=== PATIENT | male | born 1975 | race Caucasian/White ===

== ENCOUNTER → 2017-07-31 14:28 | Outpatient (CLI) | payer OTHER, SELFPAY ==
--- NOTE | 2017-07-31 14:40 | CT_ITS ---
CT abdomen pelvis wo con CLINICAL INDICATION: Right-sided flank pain with microscopic hematuria ITS.REASON: HEMATURIA ORDERING PHYSICIAN: Wan Swanson MD PATIENT AGE: 42 years COMPARISON: None TECHNIQUE: Axial images obtained with sagittal and coronal reformats. PROCEDURE: Oral Contrast: None IV Contrast: None . FINDINGS: Lung bases are clear. Diffuse fatty liver. There is hepatomegaly with a transverse component of the liver measuring 30 cm. No calcified gallstones. The spleen, adrenal glands, and pancreas are unremarkable. No hydronephrosis. No obstructing renal or ureteral calculi apparent. No obvious renal mass. Prior appendectomy. No intestinal obstruction or free air. No evidence of diverticulitis. Urinary bladder has an unremarkable unenhanced appearance. No pelvic mass or abnormal fluid collection or focal inflammatory change. Artifact is present from an epidural stimulator device along the right gluteal region. Degenerative changes are present in the lumbar spine with degenerative disc disease at L4-L5 and L5-S1. IMPRESSION: 1. No renal or ureteral calculi. 2. Fatty liver with hepatomegaly
== END ==
PROVIDERS: Family Provider Internal Medicine Adolescent Medicine; PCP Internal Medicine Adolescent Medicine; Visit Provider Internal Medicine Adolescent Medicine
DX: R31.9 Hematuria, unspecified (principal)
CPT/HCPCS: 74176

== ENCOUNTER → 2018-04-24 09:22 | Outpatient (CLI) | payer OTHER, SELFPAY ==
[2018-04-24 09:33] LABS: Basophils # 0.1 K/mm3 (0-0.2); Basophils % 0.6 % (0.1-2.0); Eosinophils # 0.3 K/mm3 (0.0-0.4); Eosinophils % 4.2 % (0.1-12.0); Hematocrit 44.6 % (42.0-52.0); Hemoglobin 14.6 g/dL (14.1-18.0); Lymphocytes % 25.5 K/mm3 (10-50); Mean Corpuscular HGB Conc 32.6 g/dL (31.8-35.4); Mean Corpuscular Hemoglobin 29.8 pg (27.0-31.2); Mean Corpuscular Volume 91.4 fl (80-94); Mean Platelet Volume 8.3 fl (7.4-10.4); Monocytes # 0.5 K/mm3 (0.1-1.0); Monocytes % 6.5 % (1.7-9.3); Neutrophils # 4.9 K/mm3 (1.8-7.8); Neutrophils % 63.2 % (37.0-80.0); Platelet Count 221 K/mm3 (142-424); Red Blood Count 4.88 M/mm3 (4.60-6.20); Red Cell Distribution Width 13.7 % (11.5-17.5); White Blood Count 7.7 K/mm3 (4.8-10.8)
[2018-04-24 10:58] LABS: Alanine Aminotransferase 42 U/L (12-78); Albumin Level 3.7 gm/dL (3.4-5.0); Albumin/Globulin Ratio 1.1 (1.1-1.8); Alkaline Phosphatase 89 U/L (46-116); Anion Gap 10.8 mEq/L (5-15); Aspartate Amino Transferase 24 U/L (15-37); Bilirubin,Total 0.4 mg/dL (0.2-1.0); Blood Urea Nitrogen 15 mg/dL (7-18); Calcium 9.1 mg/dL (8.5-10.1); Carbon Dioxide 32 mmol/L (21.0-32.0); Chloride 106 mmol/L (98-107); Chol/HDL Ratio 3.9 (1-3.5); Cholesterol 172 mg/dL (140-200); Creatinine,Serum 1.26 mg/dL (0.70-1.30); Estimated Glomerular Filt Rate 62 ml/min (>60); Free Thyroxine Index 2.7 ug/dL (5.93-13.13); GFR (African American) 76 ML/MIN (>60); Globulin 3.4 gm/dl (1.3-3.2); Glucose 89 mg/dL (74-106); HDL Cholesterol 44 mg/dL (27-67); LDL Cholesterol 108 mg/dL (0-130); Potassium 4.8 mmoL/L (3.5-5.1); Sodium 144 mmol/L (136-145); T4 (Thyroxine) 8.4 ug/dl (4.7-13.3); Thyroid Stimulating Hormone 2.57 uIU/ml (0.358-3.740); Total Protein,Serum 7.1 gm/dL (6.4-8.2); Triglycerides 100 mg/dL (30-200); Triiodothryronine (T3) Uptake 32 % (31-39); VLDL Cholesterol 20 mg/dL (0-40)
[2018-04-29 07:29] LABS: Testosterone,Free 1.6 pg/mL (6.8-21.5)
== END ==
PROVIDERS: Visit Provider Internal Medicine Adolescent Medicine
DX: E78.2 Mixed hyperlipidemia (principal); E29.1 Testicular hypofunction
CPT/HCPCS: 36415; 80053; 80061; 84402; 84403; 84436; 84443; 84479; 85025

== ENCOUNTER → 2018-08-29 08:30 | Outpatient (CLI) | payer OTHER, SELFPAY ==
[2018-08-29 09:09] LABS: Basophils # 0.1 K/mm3 (0-0.2); Basophils % 0.7 % (0.1-2.0); Eosinophils # 0.3 K/mm3 (0.0-0.4); Eosinophils % 4.8 % (0.1-12.0); Hemoglobin 17.6 g/dL (14.1-18.0); Lymphocytes # 1.5 K/mm3 (0.7-4.5); Lymphocytes % 21.7 % (10-50); Mean Corpuscular HGB Conc 33.2 g/dL (31.8-35.4); Mean Corpuscular Hemoglobin 29.8 pg (27.0-31.2); Mean Corpuscular Volume 89.8 fl (80-94); Mean Platelet Volume 7.9 fl (7.4-10.4); Monocytes # 0.6 K/mm3 (0.1-1.0); Monocytes % 8.4 % (1.7-9.3); Neutrophils # 4.5 K/mm3 (1.8-7.8); Neutrophils % 64.3 % (37.0-80.0); Platelet Count 226 K/mm3 (142-424); Red Cell Distribution Width 13.7 % (11.5-17.5); White Blood Count 7.1 K/mm3 (4.8-10.8)
[2018-08-29 10:30] LABS: Alanine Aminotransferase 44 U/L (12-78); Albumin Level 3.8 gm/dL (3.4-5.0); Alkaline Phosphatase 86 U/L (46-116); Anion Gap 14.4 mEq/L (5-15); Aspartate Amino Transferase 24 U/L (15-37); Bilirubin,Total 0.6 mg/dL (0.2-1.0); Blood Urea Nitrogen 13 mg/dL (7-18); Calcium 9.1 mg/dL (8.5-10.1); Carbon Dioxide 27 mmol/L (21.0-32.0); Chloride 102 mmol/L (98-107); Chol/HDL Ratio 5.3 (1-3.5); Cholesterol 187 mg/dL (140-200); Creatinine,Serum 1.24 mg/dL (0.70-1.30); Estimated Glomerular Filt Rate 64 ml/min (>60); GFR (African American) 77 ML/MIN (>60); Globulin 3.8 gm/dl (1.3-3.2); Glucose 96 mg/dL (74-106); HDL Cholesterol 35 mg/dL (27-67); LDL Cholesterol 132 mg/dL (0-130); Potassium 4.4 mmoL/L (3.5-5.1); Sodium 139 mmol/L (136-145); Total Protein,Serum 7.6 gm/dL (6.4-8.2); Triglycerides 102 mg/dL (30-200); VLDL Cholesterol 20 mg/dL (0-40)
[2018-08-29 12:55] LABS: Hemoglobin A1C 6.1 % (0.0-7.0)
[2018-09-02 16:09] LABS: Testosterone, Total, LC/MS 352.8 ng/dL (264.0-916.0)
[2018-09-02 16:10] LABS: Testosterone,Free 7.9 pg/mL (6.8-21.5)
== END ==
PROVIDERS: Visit Provider Internal Medicine Adolescent Medicine
DX: E78.5 Hyperlipidemia, unspecified (principal); E29.1 Testicular hypofunction; R73.9 Hyperglycemia, unspecified
CPT/HCPCS: 36415; 80053; 80061; 83036; 84402; 84403; 85025

== ENCOUNTER → 2019-06-19 07:30 | Outpatient (CLI) | payer OTHER, SELFPAY ==
[2019-06-19 07:57] LABS: Basophils % 0.5 % (0.1-2.0); Eosinophils # 0.4 K/mm3 (0.0-0.4); Eosinophils % 4.3 % (0.1-12.0); Hematocrit 42.3 % (42.0-52.0); Hemoglobin 14.2 g/dL (14.1-18.0); Lymphocytes % 25.3 % (10-50); Mean Corpuscular HGB Conc 33.5 g/dL (31.8-35.4); Mean Corpuscular Hemoglobin 30.1 pg (27.0-31.2); Mean Corpuscular Volume 89.8 fl (80-94); Monocytes # 0.6 K/mm3 (0.1-1.0); Monocytes % 7.4 % (1.7-9.3); Neutrophils % 62.5 % (37.0-80.0); Platelet Count 228 K/mm3 (142-424); Red Blood Count 4.71 M/mm3 (4.60-6.20); Red Cell Distribution Width 13.4 % (11.5-17.5); White Blood Count 8.1 K/mm3 (4.8-10.8)
[2019-06-19 08:09] LABS: Hemoglobin A1C 7.1 % (0.0-7.0)
[2019-06-19 08:57] LABS: Alanine Aminotransferase 42 U/L (12-78); Albumin Level 3.4 gm/dL (3.4-5.0); Albumin/Globulin Ratio 0.9 (1.1-1.8); Alkaline Phosphatase 88 U/L (46-116); Anion Gap 12.3 mEq/L (5-15); Aspartate Amino Transferase 25 U/L (15-37); Bilirubin,Total 0.3 mg/dL (0.2-1.0); Blood Urea Nitrogen 18 mg/dL (7-18); Calcium 8.8 mg/dL (8.5-10.1); Carbon Dioxide 28 mmol/L (21.0-32.0); Chloride 106 mmol/L (98-107); Chol/HDL Ratio 4.9 (1-3.5); Cholesterol 193 mg/dL (140-200); Creatinine,Serum 1.08 mg/dL (0.70-1.30); Estimated Glomerular Filt Rate 74 ml/min (>60); Free Thyroxine Index 3.2 ug/dL (5.93-13.13); GFR (African American) 90 ML/MIN (>60); Globulin 3.6 gm/dl (1.3-3.2); Glucose 114 mg/dL (74-106); HDL Cholesterol 39 mg/dL (27-67); LDL Cholesterol 131 mg/dL (0-130); Potassium 4.3 mmoL/L (3.5-5.1); Sodium 142 mmol/L (136-145); T4 (Thyroxine) 8.8 ug/dl (4.7-13.3); Thyroid Stimulating Hormone 2.64 uIU/ml (0.358-3.740); Triglycerides 113 mg/dL (30-200); Triiodothryronine (T3) Uptake 36 % (31-39); VLDL Cholesterol 23 mg/dL (0-40)
[2019-06-20 11:11] LABS: Testosterone,Total 86 ng/dL (264-916)
== END ==
PROVIDERS: Visit Provider Internal Medicine Adolescent Medicine
DX: E78.5 Hyperlipidemia, unspecified (principal); E11.9 Type 2 diabetes mellitus without complications; N52.9 Male erectile dysfunction, unspecified; E29.1 Testicular hypofunction
CPT/HCPCS: 36415; 80053; 80061; 83036; 84403; 84436; 84443; 84479; 85025

== ENCOUNTER → 2019-07-29 13:41 | Outpatient (CLI) | payer OTHER, SELFPAY ==
--- NOTE | 2019-07-29 13:53 | XR_ITS ---
PROCEDURE: XR SHOULDER RT MIN 2V CLINICAL INDICATION: right shoulder pain COMPARISON: [id number] VIEWS from 03/16/2016 FINDINGS: There are minimal hypertrophic changes along the greater tuberosity laterally as well as the inferior aspect the acromion with mild subacromial stenosis. No fracture or dislocation. No lytic or blastic change. IMPRESSION: Subacromial stenosis with mild hypertrophic changes of the inferior aspect of the a chromium and the greater tuberosity Dictated by: Noam Dawson MD 07/29/2019 15:38 Electronically signed by Noam Dawson MD in [place] 07/29/2019 15:38
== END ==
PROVIDERS: PCP Internal Medicine Adolescent Medicine; Visit Provider Orthopaedic Surgery
DX: M25.511 Pain in right shoulder (principal)
CPT/HCPCS: 73030

== ENCOUNTER → 2019-08-20 12:33 | Outpatient (CLI) | payer OTHER, SELFPAY ==
--- NOTE | 2019-08-20 12:34 | IR_ITS ---
PROCEDURE: IR ARTHROGRAM SHOULDER RT CLINICAL INDICATION: evaluate for rotator cuff tear Right shoulder pain, rotator cuff tear suspected. The patient has a pain pump and is not eligible for MRI COMPARISON: XR SHOULDER RT MIN 2V from 07/29/2019 FINDINGS: Technique: Following obtaining informed consent and time-out procedure under aseptic conditions and local anesthesia with 1 percent buffered lidocaine, 20 gauge spinal needle was placed into the joint space via the anterior subcoracoid approach. Approximately 12 mL of a 50 50 mixture of Optiray 320 and 1 percent lidocaine was injected in the joint space. The patient tolerated the procedure well without evidence of immediate complication and then was sent for CT of the right shoulder. In images obtained demonstrate free flow of contrast into the sub acromial region consistent with a rotator cuff tear. No other significant anomalies are evident. IMPRESSION: The findings are consistent with a right rotator cuff tear Dictated by: Noam Dawson MD 08/22/2019 08:26 Electronically signed by Noam Dawson MD in [facility] 08/22/2019 08:26
--- NOTE | 2019-08-20 12:34 | CT_ITS ---
PROCEDURE: CT SHOULDER RT W CON CLINICAL HISTORY: evaluate for rotator cuff tear Right shoulder pain with limited range of motion COMPARISON: IR ARTHROGRAM SHOULDER RT from 08/20/2019 TECHNIQUE: Axial images are obtained following the intra articular injection of contrast with fluoroscopic guidance. Axial images obtained with sagittal and coronal reformats. All CT scans at the facility use one or more dose reduction, viz: automated exposure control, ma/kV adjustment per patient size (including targeted exams where dose is matched to indication, i.e. head), or iterative reconstruction technique. FINDINGS: There is flow contrast into the subacromial region superior to the supraspinatus tendon consistent with rotator cuff tear. There is subacromial stenosis with a subacromial space measuring 5 mm. No evidence of labral tear. IMPRESSION: Findings compatible with tear of the supraspinatus tendon with subacromial stenosis Dictated by: Noam Dawson MD 08/22/2019 08:43 Electronically signed by Noam Dawson MD in [facility] 08/22/2019 08:43
== END ==
PROVIDERS: PCP Internal Medicine Adolescent Medicine; Visit Provider Orthopaedic Surgery
DX: M25.511 Pain in right shoulder (principal); G89.29 Other chronic pain
CPT/HCPCS: 73040; 73201; Q9967

== ENCOUNTER 2019-08-26 15:43 | Outpatient (RCR) | payer OTHER, SELFPAY | END 2019-08-26 16:30 | disposition home or self-care (01) | LOC: OT 15:43 | PROVIDERS: Visit Provider Orthopaedic Surgery | DX: G56.01 Carpal tunnel syndrome, right upper limb (principal) | CPT/HCPCS: 97763 ==

== ENCOUNTER → 2019-09-21 13:51 | Outpatient (POV) | payer OTHER, SELFPAY | PROVIDERS: PCP Internal Medicine Adolescent Medicine; Visit Provider Specialist | DX: M79.602 Pain in left arm (principal); M79.601 Pain in right arm; R20.2 Paresthesia of skin | CPT/HCPCS: 95909 ==

== ENCOUNTER → 2019-10-08 14:20 | Outpatient (CLI) | payer OTHER, SELFPAY ==
--- NOTE | 2019-10-08 14:27 | CT_ITS ---
PROCEDURE: CT MASTOID W/O CLINICAL HISTORY: ACUTE SEROUS OTITIS MEDIA OF LT EAR, MASTOIDITIS COMPARISON: No exams were available for comparison TECHNIQUE: Axial images obtained with sagittal and coronal reformats. All CT scans at the facility use one or more dose reduction, viz: automated exposure control, ma/kV adjustment per patient size (including targeted exams where dose is matched to indication, i.e. head), or iterative reconstruction technique. FINDINGS: There is opacification of the left mastoid sinus with a few scattered air-fluid levels in the left mastoid air cells. No abnormal soft tissue component and no obvious bony erosive process. There is some minimal soft tissue density noted in the left middle ear posteriorly. There is no evidence scutal erosion and no evidence of opacification of the epitympanic recess. The CP angle has an unremarkable unenhanced CT appearance. No paranasal sinus air-fluid level or significant mucosal thickening. There is moderate rightward nasal septal deviation with a septal spur projecting toward the right with narrowing of the right nasal canal. The ostiomeatal units are patent. The orbits have an unremarkable appearance. Unremarkable appearing TMJs. IMPRESSION: Left mastoiditis. Please see above for detailed Dictated by: Noam Dawson MD 10/09/2019 08:04 Electronically signed by Noam Dawson MD in [place] 10/09/2019 08:04
== END ==
PROVIDERS: PCP Internal Medicine Adolescent Medicine; Visit Provider Internal Medicine Adolescent Medicine
DX: H70.92 Unspecified mastoiditis, left ear (principal); H65.05 Acute serous otitis media, recurrent, left ear
CPT/HCPCS: 70486

== ENCOUNTER → 2019-10-15 16:34 | Outpatient (CLI) | payer OTHER, SELFPAY ==
[2019-10-15 16:51] LABS: Basophils # 0.1 K/mm3 (0-0.2); Basophils % 0.8 % (0.1-2.0); Eosinophils # 0.3 K/mm3 (0.0-0.4); Eosinophils % 2.3 % (0.1-12.0); Hematocrit 49.5 % (42.0-52.0); Hemoglobin 15.9 g/dL (14.1-18.0); Lymphocytes # 2.5 K/mm3 (0.7-4.5); Mean Corpuscular HGB Conc 32.1 g/dL (31.8-35.4); Mean Corpuscular Hemoglobin 28.8 pg (27.0-31.2); Mean Corpuscular Volume 89.5 fl (80-94); Monocytes # 0.7 K/mm3 (0.1-1.0); Neutrophils # 7.5 K/mm3 (1.8-7.8); Neutrophils % 67.9 % (37.0-80.0); Platelet Count 196 K/mm3 (142-424); Red Blood Count 5.53 M/mm3 (4.60-6.20); Red Cell Distribution Width 13.5 % (11.5-17.5)
--- NOTE | 2019-10-15 17:02 | ECG_ITS ---
APPROVED REPORT Exam: Resting ECG HR:64 bpm ECG Measurements Heart Rate 64 AXES UT 158 P 45 QRSd 96 QRS 27 QT 380 T 25 QTc 392 <Conclusion> Normal sinus rhythm Normal ECG Electronically signed by : Wan Swanson, 10/18/2019 13:16:16
[2019-10-15 18:57] LABS: Chloride 100 mmol/L (98-107); Sodium 138 mmol/L (136-145)
[2019-10-15 18:58] LABS: Potassium 4.4 mmoL/L (3.5-5.1)
[2019-10-15 19:00] LABS: Blood Urea Nitrogen 13 mg/dl (9-20); Estimated Glomerular Filt Rate 66 ml/min (>60); GFR (African American) 80 ML/MIN (>60)
[2019-10-15 19:01] LABS: Anion Gap 11.4 mEq/L (5-15); Carbon Dioxide 31 mmol/L (22.0-30.0)
[2019-10-15 19:07] LABS: Calcium 9.5 mg/dl (8.4-10.2); Glucose 75 mg/dl (74-100)
== END ==
PROVIDERS: Visit Provider Otolaryngology
DX: H65.23 Chronic serous otitis media, bilateral (principal); H70.12 Chronic mastoiditis, left ear
CPT/HCPCS: 36415; 80048; 85025; 93005

== ENCOUNTER 2019-10-22 06:01 | Day surgery (SDC) | payer OTHER, SELFPAY ==
[2019-10-22] VITALS (12 sets, daily range): BP systolic 110–141; BP diastolic 66–79; PULSE 51–69; RESP 17–23; TEMP 36.5–36.7; O2SAT 95–98; BMI 40.4
[2019-10-22 06:51] LABS: POC Glucose,Bedside 91 (70-110)
--- NOTE | 2019-10-22 07:01 | HMH.ANESCL ---
[facility] Anesthesia Checklist - Structural Data Admitted From: Home Planned Operative Procedure/s: lmt Consent for Planned Operative Procedure(s) Verified: Yes - Additional verifications Anesthesia Reactions: Yes (difficulty awakening/sob) Hx Blood Transfusions: No Blood Transfusion Reaction: No - Airway Assessment C-Spine Mobility Assessed: Yes TMJ Mobility Assessed: Yes Dentition: Good Dentition - Neurological Assessment Level of Consciousness: Awake, Alert, Appropriate - Anesthesia Plan Anesthesia Risk discussed: Yes Anesthesia Plan: Verified ASA Class: III Anesthesia Type: General [facility] History I have reviewed the patient's past medical history: Yes Medical History: Reports:: Anxiety, Diabetes Mellitus Type 2, Gastroesophageal Reflux Disease(GERD), Hyperlipidemia, Hypertension, Migraine Denies:: Cancer, Diabetes Mellitus Type 1, Internal Pacemaker, MRSA, Seizures *Have you ever received a pneumonia vaccine?: No *Have you received a flu vaccine this season?: Yes Other Medical History: Reports: Other. Denies: Blood Transfusion Reaction Anesthesia experience/problems:: none Other Surgeries: Yes: Appendectomy, Other. No: Pacemaker Amputation: No Fractures: No - *Social History Educational Level: Attended College Smoking Status: Current every day smoker Tobacco Type: cigarettes # Packs/Day (cigarettes): 1 #Yrs smoked (if former smoker): 25 Alcohol Intake: never Substance Use Type: opiates *Occupational Status:: employed Housing: house Household Members: significant other *Travel in the last 8 weeks: None - Psychiatric History Pschychiatric History:: Reports:: Anxiety Family Hx:: Cancer, Diabetes, Heart Attack, Hyperlipidemia, Hypertension, Thyroid Disorder, Tuberculosis, Substance abuse, Alcoholism, Mental illness
--- NOTE | 2019-10-22 08:19 | HMH.ANESI ---
[facility] Anesthesia Record Part I Intake, IV Amount: 400 Estimated blood loss (mL): 1 Urine output (mL): 0 Blood Products used (#): none Blood Pressure: 126/69 SaO2: 97 Pulse Rate: 56 Respiratory Rate: 18 Temperature: 98.1 F Patient is:: Drowsy, Nasal O2, Stable Stable to PACU at:: 08:15
[2019-10-22 08:31] LABS: POC Glucose,Bedside 94 (70-110)
--- NOTE | 2019-10-22 10:10 | P.PN_ITS ---
[facility] Anesthesia Record Part II Discharge Time: 08:45 Destination: Surgical Day Care (OP Surgery) PACU nurse assessment reviewed?: Yes Patient Condition:: Good Anesthesia Complications:: None Swallowing reflex intact?: Yes Cyanosis?: No Blood Pressure: 132/79 Pulse Rate: 64 Temperature: 98.0 F Mental Status: Alert & Oriented Pain level:: 0 Nausea and/or vomitting:: None (0) Intake, IV Amount: 25
--- NOTE | 2019-10-22 10:10 | P.OP_ITS ---
Date of procedure: 10/22/19 Pre-op Diagnosis:: 1. Acute left mastoiditis 2. Bilateral serous otitis media Post-op Diagnosis:: same Procedure performed:: 1. Bilateral myringotomy and tubes Surgeon:: Birtton Benavidez MD BEEH[employer] KILN SUPERVISOR:: Wan Campos Anesthesia: GETJordi Estimated blood loss (mL): 0 Operative findings:: same Operative note:: With the patient under general anesthesia having been given 1 g of Ancef and 12 mg of Decadron the left ear was prepped and draped. The left middle ear was bulging with serous fluid, an incision was made in the posterior inferior quadrant of the left tympanic membrane and serous fluid was aspirated. A Triune T-tube was placed. And Ciprodex drops were applied. The findings on the right ear were identical and a Triune T-tube was placed and Ciprodex drops were applied. Patient tolerated the procedure well and was sent to recovery in good general condition. Dr. Britton Benavidez Condition: stable Disposition: PACU Complications:: none
--- NOTE | 2019-10-22 10:30 | SUR.PHASEI ---
FSBS @ 0827-result of 94-no action, WNL
--- NOTE | 2019-10-22 10:31 | SUR.PHASEI ---
Patient into PACU with oral airway, patient sedate. Patient awake at 0830, oral airway removed by BROOMCORN SORTER.
== END 2019-10-22 09:17 | disposition home or self-care (01) ==
LOC: OR 06:02
PROVIDERS: PCP Internal Medicine Adolescent Medicine; Visit Provider Otolaryngology
PROC: (CPT 69436; principal; 2019-10-22 07:30)
DX: H65.23 Chronic serous otitis media, bilateral (principal); H70.12 Chronic mastoiditis, left ear; E11.9 Type 2 diabetes mellitus without complications; Z79.84 Long term (current) use of oral hypoglycemic drugs
CPT/HCPCS: 69436; 82962; 96374

== ENCOUNTER → 2020-02-23 07:21 | Outpatient (CLI) | payer OTHER, SELFPAY ==
[2020-02-23 08:13] LABS: Basophils % 0.5 % (0.1-2.0); Eosinophils # 0.3 K/mm3 (0.0-0.4); Hemoglobin 17.7 g/dL (14.1-18.0); Lymphocytes # 2.1 K/mm3 (0.7-4.5); Lymphocytes % 24.9 % (10-50); Mean Corpuscular HGB Conc 34.6 g/dL (31.8-35.4); Mean Corpuscular Hemoglobin 30.3 pg (27.0-31.2); Mean Corpuscular Volume 87.5 fl (80-94); Mean Platelet Volume 8.4 fl (7.4-10.4); Monocytes # 0.6 K/mm3 (0.1-1.0); Monocytes % 7.4 % (1.7-9.3); Neutrophils # 5.4 K/mm3 (1.8-7.8); Neutrophils % 63.2 % (37.0-80.0); Platelet Count 208 K/mm3 (142-424); Red Blood Count 5.83 M/mm3 (4.60-6.20); Red Cell Distribution Width 15.4 % (11.5-17.5); White Blood Count 8.5 K/mm3 (4.8-10.8)
[2020-02-23 08:38] LABS: Chloride 105 mmol/L (98-107)
[2020-02-23 08:39] LABS: Potassium 4.9 mmoL/L (3.5-5.1); Sodium 142 mmol/L (136-145)
[2020-02-23 08:41] LABS: Alanine Aminotransferase 33 U/L (12-78); Albumin Level 4.1 g/dl (3.5-5.0); Albumin/Globulin Ratio 1.4 (1.1-1.8); Alkaline Phosphatase 65 U/L (38-126); Anion Gap 11.9 mEq/L (5-15); Aspartate Amino Transferase 32 U/L (17-59); Bilirubin,Total 0.4 mg/dl (0.2-1.3); Blood Urea Nitrogen 16 mg/dl (9-20); Carbon Dioxide 30 mmol/L (22.0-30.0); Cholesterol 122 mg/dl (140-200); Estimated Glomerular Filt Rate 72 ml/min (>60); GFR (African American) 88 ML/MIN (>60); Globulin 2.9 g/dL (1.3-3.2); Triglycerides 91 mg/dl (30-150); VLDL Cholesterol 18 mg/dL (0-40)
[2020-02-23 08:42] LABS: Calcium 9.6 mg/dl (8.4-10.2); Chol/HDL Ratio 3.4 (1-3.5); Glucose 108 mg/dl (74-100); HDL Cholesterol 36 mg/dl (40-60)
[2020-02-23 08:53] LABS: Direct LDL Cholesterol 70.22 mg/dL (100-129)
[2020-02-23 10:42] LABS: Hemoglobin A1C 6.1 % (4.0-6.0)
[2020-02-25 06:52] LABS: Testosterone,Total 120 ng/dL (264-916)
== END ==
PROVIDERS: Visit Provider Internal Medicine Adolescent Medicine
DX: E78.5 Hyperlipidemia, unspecified (principal); I10 Essential (primary) hypertension; R73.9 Hyperglycemia, unspecified
CPT/HCPCS: 36415; 80053; 80061; 83036; 84403; 85025

== ENCOUNTER → 2020-02-25 13:00 | Outpatient (CLI) | payer OTHER, SELFPAY ==
[2020-02-26 13:17] LABS: Covid-19 Nasal PCR Sendout Lex NOT DETECTED
== END ==
PROVIDERS: PCP Internal Medicine Adolescent Medicine; Visit Provider Internal Medicine Adolescent Medicine
DX: Z03.818 Encounter for observation for suspected exposure to other biological agents ruled out (principal)
CPT/HCPCS: U0004

== ENCOUNTER → 2020-12-15 08:54 | Outpatient (CLI) | payer OTHER, SELFPAY ==
[2020-12-15 08:59] LABS: Adenovirus,PCR Not Detected (NotDetected); Bordetella Pertussis Not Detected (NotDetected); Chlamydophila Pneumoniae, PCR Not Detected (NotDetected); Coronavirus 229E Not Detected (NotDetected); Coronavirus NL63 Not Detected (NotDetected); Coronavirus OC43 Not Detected (NotDetected); Coronovirus HKU1,PCR Not Detected (NotDetected); Human Metapneumovirus Not Detected (NotDetected); Influenza A, PCR Not Detected (NotDetected); Influenza AH1, 2009 Not Detected (NotDetected); Influenza AH1, PCR Not Detected (NotDetected); Influenza AH3,PCR Not Detected (NotDetected); Influenza B, PCR Not Detected (NotDetected); Mycoplasma Pneumoniae, PCR Not Detected (NotDetected); Parainfluenza 1, PCR Not Detected (NotDetected); Parainfluenza 2, PCR Not Detected (NotDetected); Parainfluenza 3, PCR Not Detected (NotDetected); Parainfluenza 4, PCR Not Detected (NotDetected); Respiratory Syncytial Virus Not Detected (NotDetected); Rhinovirus/Enterovirus Not Detected (NotDetected)
[2020-12-15 09:18] LABS: Basophils # 0.2 K/mm3 (0-0.2); Eosinophils # 0.2 K/mm3 (0.0-0.4); Eosinophils % 1.4 % (0.1-12.0); Hematocrit 50.9 % (42.0-52.0); Hemoglobin 16.5 g/dL (14.1-18.0); Lymphocytes % 25.4 % (10-50); Mean Corpuscular HGB Conc 32.4 g/dL (31.8-35.4); Mean Corpuscular Hemoglobin 29.5 pg (27.0-31.2); Mean Corpuscular Volume 91.3 fl (80-94); Mean Platelet Volume 8.5 fl (7.4-10.4); Monocytes % 6.6 % (1.7-9.3); Neutrophils # 10.3 K/mm3 (1.8-7.8); Neutrophils % 65.5 % (37.0-80.0); Platelet Count 210 K/mm3 (142-424); Red Blood Count 5.58 M/mm3 (4.60-6.20); Red Cell Distribution Width 14.8 % (11.5-17.5); White Blood Count 15.7 K/mm3 (4.8-10.8)
[2020-12-15 09:21] LABS: MANUAL DIFFERENTIAL MANUAL DIFFERENTIAL (MANUAL DIFF)
[2020-12-15 09:43] LABS: Chloride 102 mmol/L (98-107); Potassium 3.7 mmoL/L (3.5-5.1); Sodium 141 mmol/L (136-145)
[2020-12-15 09:45] LABS: Blood Urea Nitrogen 15 mg/dl (9-20); Estimated Glomerular Filt Rate 72 ml/min (>60); GFR (African American) 88 ML/MIN (>60)
[2020-12-15 09:46] LABS: Alanine Aminotransferase 35 U/L (12-78); Albumin Level 4.2 g/dl (3.5-5.0); Albumin/Globulin Ratio 1.6 (1.1-1.8); Alkaline Phosphatase 65 U/L (38-126); Anion Gap 11.7 mEq/L (5-15); Aspartate Amino Transferase 29 U/L (17-59); Bilirubin,Total 0.5 mg/dl (0.2-1.3); Calcium 9.1 mg/dl (8.4-10.2); Carbon Dioxide 31 mmol/L (22.0-30.0); Chol/HDL Ratio 3.3 (1-3.5); Cholesterol 112 mg/dl (140-200); Globulin 2.7 g/dL (1.3-3.2); Glucose 87 mg/dl (74-100); HDL Cholesterol 34 mg/dl (40-60); Total Protein,Serum 6.9 g/dl (6.3-8.2); Triglycerides 106 mg/dl (30-150); VLDL Cholesterol 21 mg/dL (0-40)
[2020-12-15 09:58] LABS: Direct LDL Cholesterol 59.56 mg/dL (100-129)
[2020-12-15 10:32] LABS: Lymphocytes % 36 % (10-50); Monocytes % 10 % (2-9); Neutrophils % 46 % (42-76); Total Cells Counted 100
[2020-12-15 10:33] LABS: Stomatocytes 2+
[2020-12-15 10:34] LABS: Platelet Estimate Normal; Target Cells 1+
[2020-12-15 11:43] LABS: Hemoglobin A1C 6.4 % (4.0-6.0)
[2020-12-21 00:14] LABS: Testosterone, Total, LC/MS 696.9 ng/dL (264.0-916.0); Testosterone,Free 19.6 pg/mL (6.8-21.5)
== END ==
PROVIDERS: Visit Provider Internal Medicine Adolescent Medicine
DX: Z20.822 Contact with and (suspected) exposure to COVID-19 (principal); J06.9 Acute upper respiratory infection, unspecified; E78.5 Hyperlipidemia, unspecified; E11.9 Type 2 diabetes mellitus without complications; E29.1 Testicular hypofunction; Z79.84 Long term (current) use of oral hypoglycemic drugs
CPT/HCPCS: 36415; 80053; 80061; 83036; 84402; 84403; 85007; 85025; 87486; 87581; 87633; 87798

== ENCOUNTER → 2021-03-10 15:48 | Outpatient (CLI) | payer OTHER, SELFPAY ==
--- NOTE | 2021-03-10 15:52 | XR_ITS ---
PROCEDURE INFORMATION: Exam: XR Left Knee Exam date and time: 03/10/2021 3:52 PM Age: 46 years old Clinical indication: Pain; Knee; Left; Additional info: Acute pain of lt knee TECHNIQUE: Imaging protocol: XR Left knee. Views: 3 views. COMPARISON: No relevant prior studies available. FINDINGS: Bones/joints: Normal. Soft tissues: Normal. IMPRESSION: No acute findings.
== END ==
PROVIDERS: PCP Internal Medicine Adolescent Medicine; Visit Provider Nurse Practitioner Family
DX: M25.562 Pain in left knee (principal)
CPT/HCPCS: 73562

== ENCOUNTER → 2021-03-22 13:30 | Outpatient (CLI) | payer OTHER, SELFPAY ==
--- NOTE | 2021-03-22 13:33 | XR_ITS ---
PROCEDURE: XR HIP LT 2-3V W/PELVIS CLINICAL INDICATION: left hip pain COMPARISON: CT ABDPELWO CT abdomen pelvis wo con from 07/31/2017 CR XR KNEE LT 3V from 03/10/2021 FINDINGS: Mild osteoarthritic changes are present involving both hips as seen on the AP view of the pelvis. There may be a small zone osteosclerosis along the femoral head on the abduction view. Avascular necrosis would be considered. No fracture or dislocation. Neurostimulator device is present with the power pack in the right hemipelvis overlying the SI joint. IMPRESSION: Mild osteoarthritis of the hips with questionable subcortical sclerosis along the left femoral head versus artifact from the overlying acetabulum. Avascular necrosis is a possibility. Dictated by: Noam Dawson MD 03/22/2021 14:53 Noam Dawson MD in [place] 03/22/2021 14:53
== END ==
PROVIDERS: PCP Internal Medicine Adolescent Medicine; Visit Provider Orthopaedic Surgery
DX: M25.552 Pain in left hip (principal)
CPT/HCPCS: 73502

== ENCOUNTER → 2021-04-10 14:22 | Outpatient (POV) | payer OTHER, SELFPAY ==
[2021-04-10 14:38] VITALS: BP 140/81; PULSE 75; RESP 20; TEMP 36.8; O2SAT 96; BMI 40.4
--- NOTE | 2021-04-10 15:39 | HMH.PMCON ---
Assessment and Plan - Assessment and plan all Dx Assessment and Plan for all problems:: Patient has been referred to us for stimulator removal. He does have a spinal cord stimulator?[employer] in place that he has had since . The device was implanted by Dr. Puente. The patient never got relief with the implant. As result he did undergo a discectomy with Dr. Beal and has since quit the job that he was previously employed. He says this is helped his pain significantly. He is now having pain and tenderness at the implant site and is also having left knee pain. Recommendations by his orthopedic provider is to remove the stimulator and leads so that he can undergo imaging?MRI of his knee. The patient would like a neurosurgical referral for lead removal. He has requested a referral to [facility]. We will refer the patient to [facility] neurosurgery department for removal of his implant and leads. We will send the patient for x-rays to determine if he does have paddle leads. Patient is not on any anticoagulation therapy. Patient has been instructed to contact the clinic with any concerns before the next appointment. Dr. Bradshaw has reviewed this note and agrees with this plan of care. This note was dictated using voice recognition software and make contain errors or omissions. HPI - Data of Consult Patient: new to practice Consult date: 04/10/21 Requesting Physician: Lachelle Landry APRN Primary Care Provider: Wan Swanson MD - Consult Narrative Reason for consult: Stimulator removal, left knee pain History of present illness: Mr. Unedrwood is a 46 year old male presents today for consultation for stimulator removal. The patient had a stimulator placed by Dr. Khoury 1999 and 09/2004. He had a stimulator placed for low back pain with radiation into his lower extremities. He reports that he never got relief with the stimulator. Unfortunately few years later he reports he did have to undergo surgical intervention with Dr. Beal having a discectomy. Patient says that following the discectomy he quit his place of employment. His symptoms improved significantly after no longer working. He has not had the stimulator turned on for many years and says that he was not reprogrammed often with [employer], once or twice within the years that he has had the device. The device is now causing him to have some significant pain in his low back as well as anxiety and stress over having the device implanted. He is having chronic left knee pain and is seeing an orthopedist for this. They have requested the patient have the device removed so that he can undergo imaging. Patient is unsure if he has paddle lead or the type of leads that he does have in place at this time. CC: Lachelle Landry APRN [facility] History I have reviewed the patient's past medical history: Yes Medical History: Reports:: Anxiety, Diabetes Mellitus Type 2, Gastroesophageal Reflux Disease(GERD), Hyperlipidemia, Hypertension, Migraine Denies:: Cancer, Diabetes Mellitus Type 1, Internal Pacemaker, MRSA, Seizures *Have you ever received a pneumonia vaccine?: No *Have you received a flu vaccine this season?: Yes Other Medical History: Reports: Arthritis, Other. Denies: Blood Transfusion Reaction Other Surgeries: Yes: Appendectomy, Other ( back surgery x4). No: Pacemaker Amputation: No Fractures: No - *Social History Smoking Status: Current every day smoker Tobacco Type: cigarettes # Packs/Day (cigarettes): 1 #Yrs smoked (if former smoker): 25 Alcohol Intake: never Substance Use Type: former substance user Last Used Substance: unknown *Occupational Status:: other Housing: house Household Members: other *Travel in the last 8 weeks: None - Psychiatric History Pschychiatric History:: Reports:: Anxiety Family Hx:: Other Review of Systems - Review of Systems Review of Systems General: No recent weight changes, no fever, no sleep disturbances Respi
== END ==
PROVIDERS: PCP Internal Medicine Adolescent Medicine; Visit Provider Clinical Nurse Specialist Family Health
DX: Z96.82 Presence of neurostimulator (principal); M25.562 Pain in left knee
CPT/HCPCS: 99202; G0463

== ENCOUNTER → 2021-04-27 12:52 | Outpatient (CLI) | payer OTHER, SELFPAY ==
--- NOTE | 2021-04-27 12:53 | IR_ITS ---
PROCEDURE: IR ARTHROGRAM KNEE LT CLINICAL INDICATION: CT arthrogram; pt unable to have MRI COMPARISON: CR XR KNEE LT 3V from 03/10/2021 FINDINGS: Fluoroscopy time: 2.2 minutes. Following obtaining informed consent and procedure under aseptic conditions and local anesthesia with 1 percent buffered lidocaine. 12 mL a mixture Isovue 300 and normal saline and lidocaine was injected via the anterior medial approach into the joint space. The patient tolerated procedure well without evidence of immediate complication. Images obtained demonstrates filling of the suprapatellar recess and the knee joint cavity. No obvious meniscal tear apparent. Patient was then taken for CT of the left knee. Please see that report for further details. IMPRESSION: Unremarkable and uneventful left knee arthrogram. Dictated by: Noam Dawson MD 05/06/2021 08:40 Noam Dawson MD in [place] 05/06/2021 08:40
--- NOTE | 2021-04-27 12:53 | CT_ITS ---
PROCEDURE: CT KNEE LT WO/W CON CLINICAL HISTORY: CT arthrogram COMPARISON: No exams were available for comparison TECHNIQUE: Axial images obtained with sagittal and coronal reformats. All CT scans at the facility use one or more dose reduction, viz: automated exposure control, ma/kV adjustment per patient size (including targeted exams where dose is matched to indication, i.e. head), or iterative reconstruction technique. FINDINGS: Osteoarthritic changes are present involving all 3 compartments. No obvious meniscal tear. There is some contour deformity along the anterior and mid aspect of the ACL raising suspicion of a partial ACL tear. The PCL appears intact. The collateral ligaments are not well delineated with CT arthrogram technique. No acute fracture or dislocation. No lytic or blastic change. IMPRESSION: No evidence of meniscal tear. Contour deformity along the anterior aspect of the ACL raising the question of a partial tear. Dictated by: Noam Dawson MD 05/01/2021 09:26 Noam Dawson MD in [place] 05/01/2021 09:26
--- NOTE | 2021-04-27 12:53 | CT_ITS ---
PROCEDURE: CT HIP LT WO CON CLINICAL HISTORY: Left hip pain. Abnormal radiograph. Possible avascular necrosis. COMPARISON: CT ABDPELWO CT abdomen pelvis wo con from 07/31/2017 CR XR HIP LT 2-3V W/PELVIS from 03/22/2021 TECHNIQUE: Axial images obtained with sagittal and coronal reformats. All CT scans at the facility use one or more dose reduction, viz: automated exposure control, ma/kV adjustment per patient size (including targeted exams where dose is matched to indication, i.e. head), or iterative reconstruction technique. FINDINGS: A well-circumscribed subchondral area of decreased density is present in the femoral head with a sclerotic margin consistent with an area of avascular necrosis. This measures 18 mm in with 22 mm in AP dimension and 6 mm in thickness. No cortical collapse is evident. Well-circumscribed lucent defects are present in the left acetabular roof laterally and in the subcapital region of the left femoral head anteriorly consistent with geodes. No acute fracture or dislocation. Minimal osteoarthritic changes are present involving the left hip with slight decrease in the joint space. There is sclerosis of the left SI joint with anterior bridging. IMPRESSION: 1. Geographic defect involves the femoral head in the subcortical region consistent with avascular necrosis. No cortical collapse. 2. Mild osteoarthritis of the left hip with geodes of the acetabular roof and left femoral neck. Dictated by: Noam Dawson MD 04/28/2021 08:18 Noam Dawson MD in [place] 04/28/2021 08:18
== END ==
PROVIDERS: PCP Internal Medicine Adolescent Medicine; Visit Provider Orthopaedic Surgery
DX: M17.12 Unilateral primary osteoarthritis, left knee (principal); M25.562 Pain in left knee; S89.92XA Unspecified injury of left lower leg, initial encounter; M87.052 Idiopathic aseptic necrosis of left femur
CPT/HCPCS: 73580; 73700; Q9967

== ENCOUNTER → 2021-07-31 09:37 | Outpatient (CLI) | payer OTHER, SELFPAY | PROVIDERS: PCP Internal Medicine Adolescent Medicine; Visit Provider Internal Medicine Adolescent Medicine | DX: M54.12 Radiculopathy, cervical region (principal) ==

== ENCOUNTER → 2021-08-04 07:40 | Outpatient (CLI) | payer OTHER, SELFPAY ==
--- NOTE | 2021-08-04 07:45 | IR_ITS ---
FINAL REPORT CLINICAL HISTORY: CERVICAL NEURALGIA TIME-1.17 FINDINGS: Cervical Myelogram HISTORY: Neck pain with arm pain ATTENDING PHYSICIAN: Dr. Fowler PHYSICIAN [employer]MENT [employer]INT TECH: Jose Berg PA-C PROCEDURE: Informed consent was obtained. A time-out was performed, and the patient was prepped and draped in usual sterile fashion over the lumbar spine. Utilizing local anesthesia and direct fluoroscopic guidance, access to the thecal space was obtained at the L4-L5 level. 10 mL of Isovue-M 300 was gently injected. Spot and overhead films were obtained. FINDINGS: Contrast is identified in the thecal sac. There is normal alignment. FLUOROSCOPY TIME:1.17 minutes IMPRESSION: Technically successful myelogram. Please see CT scan report. Films reviewed , interpreted and dictated by Dr. Fowler. Transcribed by Jose Berg PA-C. Reviewed, Interpreted and Dictated by Kj Fowler III, MD Transcribed by ZECHARIAH Cano Authenticated by Kj Fowler III, MD on 08/04/2021 10:17:[address] [facility]
--- NOTE | 2021-08-04 08:10 | CT_ITS ---
FINAL REPORT TECHNIQUE: Axial CT images of the cervical spine were obtained for after the intrathecal injection of contrast. Sagittal and coronal reformatted images were obtained. This study was performed with techniques to keep radiation doses as low as reasonably achievable (ALARA). Individualized dose reduction techniques using automated exposure control or adjustment of mA and/or kV according to the patient's size were employed. CLINICAL HISTORY: CERVICAL NECK PAIN COMPARISON: CT cervical spine March 27, 2016 FINDINGS: POST MYELOGRAM CT CERVICAL SPINE There is no evidence of fracture. Bony alignment is normal. Multilevel degenerative changes are noted. C2-C3: No evidence of significant canal stenosis or neural foraminal narrowing. C3-C4: Bilateral uncovertebral osteophytes, right greater than left. Mild right neural foraminal narrowing, stable. C4-C5: Bilateral uncovertebral osteophytes, mild right neural foraminal narrowing, stable. C5-C6: A disc osteophyte complex is present. There is moderate right and mild left neural foraminal narrowing, stable. C6-C7: A disc osteophyte complex is present. There is mild left neural foraminal narrowing, stable. C7-T1: Small uncovertebral osteophytes are present. There is no significant canal stenosis or neuroforaminal narrowing. IMPRESSION: Multilevel degenerative disc disease and spondylosis, stable. No focal disc protrusion or significant central canal stenosis. Reviewed, Interpreted and Dictated by Kj Fowler III, MD Transcribed by Ada Mckeon Authenticated by Kj Fowler III, MD on 08/04/2021 11:04:[address] [facility]
== END ==
PROVIDERS: PCP Internal Medicine Adolescent Medicine; Visit Provider Internal Medicine Adolescent Medicine
DX: M54.12 Radiculopathy, cervical region (principal)
CPT/HCPCS: 62302; 72125; Q9967

== ENCOUNTER → 2023-07-22 13:52 | Outpatient (POV) | payer OTHER, SELFPAY ==
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
[2023-07-22 14:07] VITALS: BP 144/81; PULSE 78; RESP 18; O2SAT 97; BMI 38.3
== END | disposition home or self-care (01) ==
PROVIDERS: PCP Internal Medicine Adolescent Medicine; Visit Provider Nurse Practitioner Family
DX: M50.30 Other cervical disc degeneration, unspecified cervical region (principal); M47.812 Spondylosis without myelopathy or radiculopathy, cervical region; M51.16 Intervertebral disc disorders with radiculopathy, lumbar region; M79.604 Pain in right leg
CPT/HCPCS: 99202; G0463

== ENCOUNTER 2023-08-06 13:11 | Day surgery (SDC) | payer OTHER, SELFPAY ==
[2023-08-06 13:30] VITALS: BP 147/71; PULSE 82; RESP 16; TEMP 36.7; O2SAT 96; BMI 37.3
[2023-08-06 13:35] VITALS: BP 127/80; PULSE 70; PULSE 74; RESP 18; O2SAT 95
[2023-08-06] MEDS: LIDOCAINE 1% 5ML PF VIAL 5 ML (13:36)
[2023-08-06] MEDS: IOPAMIDOL-200 (41%);10ML VIAL 10 ML IV (13:39)
[2023-08-06 13:43] VITALS: BP 129/83; PULSE 74; RESP 18; O2SAT 96
--- NOTE | 2023-08-06 13:43 | EXP.PAIN.PRO ---
Procedure Date: 08/06/23 Time: 13:35 Anesthesiologist:: Marquis Johansen CRNA Complications:: None Pre-procedure Diagnosis:: Degenerative disc lumbar spine multilevels. Lumbar radiculopathy. Disc bulge lumbar spine L4-5, L5-S1. Post-procedure Diagnosis:: Same. Indications for Procedure:: Patient is a very pleasant 48-year-old male comes our clinic today for a right L4-5 and L5-S1 transforaminal epidural steroid injection. Patient reports low right back pain with radiating pain down the right leg to the foot. He rates the pain 7/10. Patient does have a functioning [employer] spinal cord stimulator. He is requesting a reprogramming. We will help him contact with the rep for [employer]. Procedure Details:: Details of the procedure were explained to the patient. The patient was taken the procedure room placed in the prone position. The area of the lumbar spine was cleansed using chlorhexidine as a cleansing solution. At this time using fluoroscopy guidance markers were placed on the right lateral border of the L4 and L5 vertebral body. The skin and subcutaneous tissue was anesthetized using 1% lidocaine and 25-gauge needle. At this time using a 22-gauge 3-1/2 inch spinal needle the right upper one third of the L4-5 foramen was accessed. The same was done at the right L5-S1 foramen. Needle positions were confirmed and a lateral view using fluoroscopy and contrast dye. At this time 1 cc of 1% lidocaine +20 mg of Depo-Medrol was injected at each level after negative aspiration. [place] were removed. Band-Aid applied. Patient tolerated the procedure without difficulty. There are no complications. Plan and Disposition:: Patient was discharged without incident.
== END 2023-08-06 13:43 | disposition home or self-care (01) ==
PROVIDERS: PCP Internal Medicine Adolescent Medicine; Visit Provider Nurse Anesthetist, Certified Registered
DX: M51.16 Intervertebral disc disorders with radiculopathy, lumbar region (principal); M51.26 Other intervertebral disc displacement, lumbar region; Z96.82 Presence of neurostimulator
CPT/HCPCS: 64483; 64484; J1030; Q9966

== ENCOUNTER 2023-08-21 13:43 | Outpatient (POV) | payer OTHER, SELFPAY ==
--- NOTE | 2023-08-21 14:41 | EXP.PAIN.SOA ---
[facility] Pain Management SOAP Note Subjective:: Patient is a pleasant 48-year-old male who presents today for follow-up of right transforaminal epidural steroid injection L4-L5 and L5-S1 on 08/06/2023. We are currently treating the patient for degenerative disc disease of lumbar spine with lumbar radiculopathy symptoms, neck pain. Today he rates his pain a 7 out of 10. Patient denies any new trauma or injury. He does state that he may have had a few days of relief with this injection however it was not significant enough that he would necessarily repeat it. He does state that he continues to have chronic pain in his low back with radiating symptoms down his entire right leg. Patient does have a 20-year-old spinal cord stimulator in place and from our last visit he did meet with [employer] human resources representative for reprogramming. He states that ended up that only 3 out of the 8 leads for his device are still functioning. Patient was counseled last visit that he may need to have this device replaced due to the age and not quite functioning as it was initially. Patient does state that he would like to proceed forward with this option. Patient does have paddle leads in place. Patient is prescribed Suboxone, testosterone and pregabalin from outside providers. He denies any side effects from this medication. His Salvador has been reviewed and is appropriate. Review of Systems: General: No recent weight changes, no fever, no sleep disturbances Respiratory: No cough, no shortness of air, no recurring pulmonary infections Cardiovascular/peripheral vascular: No chest pain, no palpitations, no edema, no shortness of breath Gastrointestinal: No new onset incontinence, normal bowel movements reported Genitourinary: No new onset incontinence Musculoskeletal: Low back pain, right leg pain Psychiatric: [Normal mood/affect] Neurological: [Denies weakness in extremities], [denies balance issues] Objective:: Physical Exam: General: Alert and oriented x3, no acute distress, pleasant and cooperative Lungs: Respirations even and unlabored, symmetrical chest expansion Eyes: PERRL Musculoskeletal: Flexion and extension of lumbar [spine] somewhat guarded secondary to pain, [antalgic gait noted] Neurological: Speech clear, no gross sensory deficit Assessment:: Degenerative disc disease of lumbar spine with lumbar radiculopathy symptoms, neck pain, nonfunctioning spinal cord stimulator Plan:: Patient is experiencing significant pain in his low back with radiating symptoms to his right leg. Patient does have a device that is been in place since 2003 and is no longer functioning appropriately. Patient has met with [employer] human resources representative and does have 5 leads that are no longer functional out of the total of 8. I have discussed with the patient the risk and benefits of his spinal cord stimulator replacement and he would like to proceed forward with this plan of care. Due to the patient's history of having paddle leads we will refer him over to Dr. Guadalupe for this procedure. Patient will return to clinic following this procedure for reevaluation of symptoms and plan of care. Patient will follow-up in 2 months. Patient has been instructed to contact the clinic with any concerns before the next appointment. Dr. Bradshaw has reviewed this note and agrees with this plan of care. This note was dictated using voice recognition software and make contain errors or omissions. [facility] Disclaimer: The information contained in this section may have been updated after the patient was seen, as this information can be updated by other users. 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
[2023-08-21 16:05] VITALS: BP 131/81; PULSE 70; RESP 18; O2SAT 95; BMI 37.3
== END 2023-08-21 23:59 ==
LOC: SC.PAIN 13:44
PROVIDERS: PCP Internal Medicine Adolescent Medicine; Visit Provider Nurse Practitioner Family
DX: M51.16 Intervertebral disc disorders with radiculopathy, lumbar region (principal); M54.2 Cervicalgia; Z96.82 Presence of neurostimulator
CPT/HCPCS: 99212; G0463

== ENCOUNTER 2023-10-17 15:09 | Outpatient (POV) | payer OTHER, SELFPAY ==
[2023-10-17 15:18] VITALS: BP 123/76; PULSE 72; RESP 18; O2SAT 97; BMI 37.6
--- NOTE | 2023-10-17 15:48 | A.OFFVIS_ITS ---
[facility] Pain Management SOAP Note Subjective:: Patient is a pleasant 48-year-old male who presents today for 1 month follow-up. Today he rates his pain a 2 out of 10. Patient does state that he has not had any new traumas or injury. He does state from our last visit that he has not heard anything from Dr. Guadalupe office that we send a referral to for spinal cord stimulator replacement with paddle leads. Patient does state that he has continued to do well with his current pregabalin and it feels like with this and the combination of his stimulator replacement that he would be doing really well. Patient states that initially when he got his stimulator that it worked really well and he had improved function and decreased pain where he did not even have to rely on medications. Patient states that he has tried to have his [employer] leather goods sales representative reprogram his device however only ended up with 3 of the 8 leads being functional. Patient has tried and failed conservative treatment such as oral medications, heat and ice, topicals, prior physical therapy and continued at home stretching exercise for longer than 12 weeks. Patient would still like to proceed forward with hip replacement option. His Salvador has been reviewed and is appropriate. He is on Suboxone therapy and testosterone from outside providers as well. Review of Systems: General: No recent weight changes, no fever, no sleep disturbances Respiratory: No cough, no shortness of air, no recurring pulmonary infections Cardiovascular/peripheral vascular: No chest pain, no palpitations, no edema, no shortness of breath Gastrointestinal: No new onset incontinence, normal bowel movements reported Genitourinary: No new onset incontinence Musculoskeletal: Low back pain, leg pain Psychiatric: [Normal mood/affect] Neurological: [Denies weakness in extremities], [denies balance issues] Objective:: Physical Exam: General: Alert and oriented x3, no acute distress, pleasant and cooperative Lungs: Respirations even and unlabored, symmetrical chest expansion Eyes: PERRL Musculoskeletal: Flexion and extension of lumbar [spine] somewhat guarded secondary to pain, [antalgic gait noted] Neurological: Speech clear, no gross sensory deficit Assessment:: Degenerative disc disease of lumbar spine with lumbar radiculopathy symptoms, neck pain, nonfunctioning spinal cord stimulator Plan:: Will reach out to Dr. Barros's office to see where you are at regarding the referral for the spinal cord stimulator replacement due to having paddle leads. I have reviewed over the risk and benefits of this replacement and the patient would like to proceed forward with this plan of care. Patient's current device is nonfunctioning. Patient has tried and failed conservative therapies. I have counseled the patient that we will contact him once we have updated information regarding his referral or if we have to send him to a different neurosurgeon for the replacement. Patient acknowledges understanding and agrees with this plan of care. Patient did state that he thought his primary care doctor had to do a peer to peer and that his insurance had initially denied the replacement. I have counseled the patient that we will follow-up on this as well that it would be more beneficial for our office if needed to do the peer to peer or the neurosurgeons office regarding this nonfunctioning device. Patient has been instructed to contact the clinic with any concerns before the next appointment. Dr. Bradshaw has reviewed this note and agrees with this plan of care. This note was dictated using voice recognition software and make contain errors or omissions. [facility] Disclaimer: The information contained in this section may have been updated after the patient was seen, as this information can be updated by other users. 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
== END 2023-10-17 23:59 | disposition home or self-care (01) ==
LOC: SC.PAIN 15:09
PROVIDERS: PCP Internal Medicine Adolescent Medicine; Visit Provider Nurse Practitioner Family
DX: M51.16 Intervertebral disc disorders with radiculopathy, lumbar region (principal); M54.2 Cervicalgia; T85.193A Other mechanical complication of implanted electronic neurostimulator, generator, initial encounter
CPT/HCPCS: 99212; G0463

== ENCOUNTER → 2025-03-12 20:07 | Outpatient (CLI) | payer OTHER, SELFPAY ==
--- OUTSIDE RECORDS SUMMARY | 2025-03-12 20:11 | XMS_ITS | Clinical Summary ---
Author Organization Healthcare Address [address] [place] [address] Care Team Providers Care Polo Coach Name Role Phone Wan Swanson MD Primary Care Provider + [phone] Family History Medical History Relation Name Comments Colon cancer Brother 1 Cardiac disorder Brother 2 Diabetes Brother 3 Kidney cancer Brother 4 Cardiac disorder Father Diabetes Father Hyperlipidemia Father Hypertension Father Liver disease Maternal Grandfather Alzheimer's disease Maternal Grandmother Dementia Maternal Grandmother Cardiac disorder Mother Hyperlipidemia Mother Hypertension Mother Alzheimer's disease Paternal Grandfather Stroke Paternal Grandfather Cardiac disorder Paternal Grandmother Conversions - Other Sister MVA (mot or vehicle accident) Relation Name Status Comments Brother 1 Brother 2 Brother 3 Brother 4 Father Maternal Grandfather Maternal Grandmother Mother Paternal Grandfather Paternal Grandmother Sister Social History Tobacco Use Types Packs/Day Years Used Date Smoking Tobacco: Every Day Sex and Gender Information Value Date Recorded Sex Assigned at Not on file Legal Sex Male 8:32 PM EDT Gender Identity Not on file Sexual Orientation Not on file Last Filed Vital Signs Vital Sign Reading Time Taken Comments Blood Pressure - - Pulse - - Temperature - - Respiratory Rate - - Oxygen Saturation - - Inhaled Oxygen Concentration - - Weight 122 kg (270 lb) 05/24/2016 9:48 AM EST Height 180.3 cm (5' 11 ) 05/24/2016 9:48 AM EST Body Mass Index 37.66 05/24/2016 9:48 AM EST Plan of Treatment Not on file Care Teams Polo Coach Relationship Specialty Start Date End Date Wan Swanson MD [address] [place] [id number] PCP - General 11/04/20
--- OUTSIDE RECORDS SUMMARY | 2025-03-12 20:12 | XMS_ITS | Clinical Summary ---
[facility] Address [address] [place] [address] Care Team Providers Care Instructor Watch Assembly Name Role Phone Wan Swanson MD Primary Care Provider [phone] Allergies No known active allergies Medications buprenorphine-n aloxone (SUBOXONE) 8-2 MG per SL tablet Dissolve 1&1/4 tablets in mouth once a day 0 07/26/2018 Active DULoxetine (CYMBALTA) 60 MG capsule Take 60 mg by mouth Daily. 5 07/02/2018 Active metoprolol tartrate (LOPRESSOR) 50 MG tablet Take 50 mg by mouth 2 (Two) Times a Day. 2 07/02/2018 Active Testosterone Cypionate (DEPOTESTOTERON E CYPIONATE) 200 MG/ML injection Inject 1 vial every 2 weeks for 8 doses as directed 3 07/30/2018 Active predniSONE (DELTASONE) 10 MG tablet 6/5/4/3/2/ As directed PO 21 tablet 08/05/2018 Active Family History Medical History Relation Name Comments Diabetes Father Heart disease Father Cancer Maternal Grandfather Diabetes Maternal Grandfather Cancer Maternal Grandmother Diabetes Maternal Grandmother Heart disease Maternal Grandmother Cancer Mother Heart disease Mother Cancer Paternal Grandfather Diabetes Paternal Grandfather Heart disease Paternal Grandfather Cancer Paternal Grandmother Diabetes Paternal Grandmother Heart disease Paternal Grandmother Relation Name Status Comments Father Maternal Grandfather Maternal Grandmother Mother Paternal Grandfather Paternal Grandmother Social History Tobacco Use Types Packs/Day Years Used Date Smoking Tobacco: Every Day Abuse Screen Answer Date Recorded Unsafe at Home or Work/School Not on file Feels Threatened by Someone? Not on file 02/2023 Does Anyone Keep You from Co ntacting Others or Doint Things Outside the Home? Not on file 04/01/2023 Physical Sign of Abuse Present Not on file 1 Housing Stability Answer Date Recorded Current Living Arrangements Not on file 02/2023 Potentially Unsafe Housing Conditions Not on diane e 04/01/2023 Family and Community Support Answer Jeovanny e Recorded Help with Day-to-Day Activities Not on file 04/01/2023 Lonely or Isolated Not on file 04/01/2023 Employment Answer Date Recorded Do you want help finding or keeping work or a juarez b? Not on file 04/01/2023 Disabilities Answer Date Recorded Concentrating, Remembering, or Making Decisions Difficulty Not on file 04/01/2023 Doing Errands Independently Difficulty Not on fi le 04/01/2023 Education Answer Date Recorded Help with school or training? Not on file Preferred Language Not on file 04/01/2023 Sex and Gender Information Value Date Recorded Sex Assigned at Not on file Legal Sex Male 1:06 PM EDT Gender Identity Not on file Sexual Orientation Not on file Last Filed Vital Signs Vital Sign Reading Time Taken Comments Blood Pressure 132/86 08/05/2018 5:11 PM EST Pulse 91 08/05/2018 5:11 PM EST Temperature 36.3 C (97.4 F) 08/05/2018 5:11 PM EST Respiratory Rate 12 08/05/2018 5:11 PM EST Oxygen Saturation 98% 08/05/2018 5:11 PM EST Inhaled Oxygen Concentration - - Weight 132 kg (290 lb) 08/05/2018 5:11 PM EST Height 182.9 cm (6') 08/05/2018 5:11 PM EST Body Mass Index 39.33 08/05/2018 5:11 PM EST Plan of Treatment Health Maintenance Due Date Last Done Comments TDAP/TD VACCINES (1 - Tdap) 1994 ANNUAL PHYSICAL 08/05/2018 HEPATITIS C SCREENING 08/05/2018 COLOGUARD 02/19/2020 COLON CANCER SCREENING 5 YEAR SIGMOIDOSCOPY 02/19/2020 COLONOSCOPY 02/19/2020 COLORECTAL CANCER SCREENING 02/19/2020 CT COLONOGRAPHY 02/19/2020 FECAL OCCULT BLOOD TEST 02/19/2020 FIT Testing (1 year) 02/19/2020 INFLUENZA VACCINE 01/22/2025 Pneumococcal Vaccine 50+ (1 of 1 - PCV) 2025 ZOSTER VACCINE (1 of 2) 2025 Insurance [employer] Care Teams Instructor Watch Assembly Relationship Specialty Start Date End Date Wan Swanson MD [address] [facility] [address] [place] [address] PCP - General Adolescent Medicine 04/13/21
== END ==
LOC: SL 20:09
PROVIDERS: PCP Internal Medicine Adolescent Medicine; Visit Provider Specialist
DX: G47.33 Obstructive sleep apnea (adult) (pediatric) (principal); G47.10 Hypersomnia, unspecified; R53.82 Chronic fatigue, unspecified; Z68.37 Body mass index [BMI] 37.0-37.9, adult
CPT/HCPCS: 95811